=== PATIENT | male | born 1965 | race American Indian/Alaskan Native ===

== ENCOUNTER 2020-02-02 13:01 | Emergency (ER) | payer MEDICARE ==
[2020-02-02 17:03] LABS: Hematocrit 30.2 % (35.5-45.6); Hemoglobin 9.8 gm/dl (11.8-15.2)
== END 2020-02-03 00:05 | disposition left against medical advice (07) ==
LOC: ED 13:01
DX: Z00.8 Encounter for other general examination (principal); Z53.21 Procedure and treatment not carried out due to patient leaving prior to being seen by health care provider
CPT/HCPCS: 36415; 85014; 85018